=== PATIENT | male | born 1935 | race Two or more races ===

== ENCOUNTER 2018-10-30 09:08 | Outpatient (CLI) | payer OTHER ==
[~2018-10-30] VITALS: Ht 152.4 cm; Wt 90.7 kg
== END 2018-10-30 09:20 | disposition home or self-care (01) ==
LOC: OFIC 805 09:08
DX: H90.3 Sensorineural hearing loss, bilateral (principal); H61.23 Impacted cerumen, bilateral

== ENCOUNTER 2018-12-04 09:41 | Outpatient (CLI) | payer OTHER ==
[~2018-12-04] VITALS: Ht 152.4 cm; Wt 90.7 kg
== END 2018-12-04 10:00 | disposition home or self-care (01) ==
LOC: OFIC 805 09:41
DX: H90.3 Sensorineural hearing loss, bilateral (principal)

== ENCOUNTER 2018-12-04 13:10 | Outpatient (CLI) | payer OTHER | END 2018-12-04 13:32 | disposition HB | LOC: LAB 13:10 | DX: H90.3 Sensorineural hearing loss, bilateral (principal); H93.11 Tinnitus, right ear; Z51.81 Encounter for therapeutic drug level monitoring ==

== ENCOUNTER 2019-01-15 09:53 | Outpatient (CLI) | payer OTHER ==
[~2019-01-15] VITALS: Ht 152.4 cm; Wt 90.7 kg
== END 2019-01-15 10:15 | disposition home or self-care (01) ==
LOC: OFIC 805 09:53
DX: H90.3 Sensorineural hearing loss, bilateral (principal); H61.23 Impacted cerumen, bilateral; H93.12 Tinnitus, left ear

== ENCOUNTER 2019-05-07 09:46 | Outpatient (CLI) | payer OTHER ==
[~2019-05-07] VITALS: Ht 152.4 cm; Wt 90.7 kg
== END 2019-05-07 09:59 | disposition home or self-care (01) ==
LOC: OFIC 805 09:46
DX: H90.3 Sensorineural hearing loss, bilateral (principal); H61.23 Impacted cerumen, bilateral; H93.12 Tinnitus, left ear

== ENCOUNTER → 2023-02-23 | Emergency (ER) | payer OTHER ==
[~2023-02-23] VITALS: Ht 180.3 cm; Wt 83.9 kg
[~2023-02-23] MED LIST: ATORVASTATIN CA10 MG PO; IRBESARTAN300 MG PO
== END | disposition home or self-care (01) ==
LOC: ER 09:24
DX: J32.9 Chronic sinusitis, unspecified (principal); I10 Essential (primary) hypertension; Z20.822 Contact with and (suspected) exposure to COVID-19

== ENCOUNTER 2024-05-26 22:11 | Emergency (ER) | payer OTHER ==
[~2024-05-26] VITALS: Ht 162.6 cm; Wt 77.1 kg
[~2024-05-26 22:11] MED LIST changes: +ACETAMINOPHEN500 M2 PO; +ALL DAY ALLERGY10 MG PO; +MUCINEX DM ER1 EAC1 PO; +NEURONTIN300 MG PO; +ZITHROMAX500 MG PO; +[UNRECOGNIZED DRUG - OTHER]
[2024-05-26] MEDS ORDERED: ALLOPURINOL100 MG PO (22:20)
[2024-05-27 00:11] LABS: HEMATOCRIT 38.7 % (39.0-48.0); HEMOGLOBIN 13.2 g/dL (13-16.00); MEAN CELL VOLUME 95.4 fL (80.0-100.00); MEAN CORPUSCULAR HEMOGLOBIN 32.5 pg (27.00-32.0); MEAN CORPUSCULAR HGB CONC 34.1 g/dl (32.0-36.0); RED BLOOD COUNT 4.06 M/uL (4.00-6.00); RED CELL DISTRIBUTION WIDTH 13.7 % (11.5-14.5)
[2024-05-27 00:30] LABS: CALCIUM 8.8 mg/dL (8.5-10.1); CREATININE SERUM 1.19 mg/dL (0.70-1.30); GFR 57.56; POTASSIUM 4.23 mEq/L (3.5-5.1); URIC ACID 5.2 mg/dL (3.5-8.5)
[2024-05-27 00:32] LABS: PLATELET COUNT 144 K/uL (150-450)
[2024-05-27 00:37] LABS: PH,URINE 6.5 (5.0-8.0); URINE APPEARANCE Clear; URINE BILIRRUBIN Negative (NEGATIVE); URINE BLOOD Large; URINE COLOR Yellow; URINE GLUCOSE Negative (NEGATIVE); URINE KETONE Negative (NEGATIVE); URINE LEUKOCYTE Trace; URINE NITRATE Negative; URINE PROTEIN Trace (NEGATIVE)
[2024-05-27 00:40] LABS: URINE BACTERIA 30.2 uL (0.0-1933); URINE EPITHELIAL CELLS 1.8 uL (0.0-38.8); URINE RBC 6443.3 uL (0.0-20.8); URINE WBC 25.9 uL (0.0-23.2)
[2024-05-27] MEDS ORDERED: CEFTRIAXONE SODIUM 1,000 MG VIAL IM STA (01:04)
[2024-05-27] MEDS ORDERED: CIPRO500 MG PO (01:10)
== END 2024-05-27 01:26 | disposition home or self-care (01) ==
LOC: ER 22:11
PROVIDERS: General Practice
DX: N30.81 Other cystitis with hematuria (principal); R31.9 Hematuria, unspecified; I10 Essential (primary) hypertension; N40.0 Benign prostatic hyperplasia without lower urinary tract symptoms; E11.9 Type 2 diabetes mellitus without complications; M10.9 Gout, unspecified
CPT/HCPCS: 36415; 96372; 99282; J0696